=== PATIENT | female | born 1960 | race Caucasian/White ===

== ENCOUNTER → 2016-11-16 | Outpatient (REF) | payer BC | LOC: M SFHCWAGY 15:50 | PROVIDERS: ATTEND Nurse Practitioner Family | DX: Z12.4 Encounter for screening for malignant neoplasm of cervix (principal) ==

== ENCOUNTER → 2017-04-21 | Outpatient (CLI) | payer BC ==
--- NOTE | 2017-04-21 10:11 | REPMRS ---
Patient History The patient states she had a clinical breast exam in November 2016. Patient is postmenopausal, has history of breast cancer at age 49, and had previous chemotherapy at age 49. Malignant lumpectomy, 2010. Chemotherapy, 2010. Radiation therapy of the right breast, 2009. Digital Mammo Screening Bilat: April 21, 2017 - Exam #: [id number] Bilateral CC and MLO view(s) were taken. Technologist: Marjorie Perdomo, Technologist Prior study comparison: April 14, 2016, bilateral digital mammo screening bilat performed at [facility]. March 26, 2015, bilateral digital mammo screening bilat performed at [facility]. FINDINGS: There are scattered fibroglandular densities. There has been no change in the appearance of the mammogram from the prior studies. There is a mild amount of residual fibroglandular tissue which is fairly symmetric. There are multiple post treatment changes in the right breast upper outer quadrant with skin thickening and multiple axillary surgical clips, unchanged. There is no interval development of dominant mass, architectural distortion, or clustered microcalcification suggestive of malignancy. There are scattered, small, benign calcifications of doubtful clinical significance. No significant changes when compared with prior studies. ASSESSMENT: BI-RADS/ACR category 2 mammogram. Benign finding(s). Recommendation Routine screening mammogram in 1 year (for women over age 40). This mammogram was interpreted with the aid of an FDA-approved computer-aided dectection system. A. Negative x-ray reports should not delay biopsy if a dominant or clinically suspicious mass is present. B. Four to eight percent of cancers are not identified by mammography. C. Adenosis and dense breast may obscure an underlying neoplasm. Electronically Signed By: Mike De La Cruz MD 04/21/17 1015
== END ==
LOC: M RAD 08:49
PROVIDERS: ATTEND Internal Medicine Medical Oncology
DX: Z12.31 Encounter for screening mammogram for malignant neoplasm of breast (principal); Z85.3 Personal history of malignant neoplasm of breast